=== PATIENT | male | born 1980 | race Caucasian/White ===

== ENCOUNTER 2019-06-26 12:50 | Emergency (ER) | payer MEDICAID ==
[~2019-06-26] VITALS: Ht 180.3 cm; Wt 166.4 kg
[~2019-06-26 12:50] MED LIST: FAMO-128 PO
[2019-06-26] MEDS ORDERED: ibuprofen tablet 400 MG TABLET PO ONE (14:10)
[2019-06-26 14:57] VITALS: BP 136/92
== END 2019-06-26 14:59 | disposition home or self-care (01) ==
LOC: ER 12:51
DX: R07.81 Pleurodynia (principal); E78.00 Pure hypercholesterolemia, unspecified; I10 Essential (primary) hypertension; G47.30 Sleep apnea, unspecified; E11.9 Type 2 diabetes mellitus without complications; G89.29 Other chronic pain; F41.9 Anxiety disorder, unspecified; F32.9 Major depressive disorder, single episode, unspecified; F20.9 Schizophrenia, unspecified; F17.200 Nicotine dependence, unspecified, uncomplicated; F12.90 Cannabis use, unspecified, uncomplicated; Z98.890 Other specified postprocedural states; Z79.899 Other long term (current) drug therapy
CPT/HCPCS: 71046; 99283

== ENCOUNTER 2019-07-16 09:31 | Emergency (ER) | payer MEDICAID ==
[~2019-07-16] VITALS: Ht 180.3 cm; Wt 170.9 kg
[2019-07-16 09:39] VITALS: BP 162/108
[2019-07-16] MEDS ORDERED: ketorolac trometh inj. 60 MG/2 ML VIAL IM ONE (10:05)
[2019-07-16] MEDS ORDERED: HYDROcodone/acetaminophen 5mg/325mg tablet PO ONE (10:05)
== END 2019-07-16 10:15 | disposition home or self-care (01) ==
LOC: ER 09:31
DX: M94.0 Chondrocostal junction syndrome [Tietze] (principal); R11.10 Vomiting, unspecified; E78.00 Pure hypercholesterolemia, unspecified; I10 Essential (primary) hypertension; E11.9 Type 2 diabetes mellitus without complications; G89.29 Other chronic pain; F41.9 Anxiety disorder, unspecified; F32.9 Major depressive disorder, single episode, unspecified; F20.9 Schizophrenia, unspecified; G47.30 Sleep apnea, unspecified; F12.90 Cannabis use, unspecified, uncomplicated; Z98.890 Other specified postprocedural states; Z79.899 Other long term (current) drug therapy
CPT/HCPCS: 96372; 99283; J1885

== ENCOUNTER 2019-07-22 05:27 | Inpatient (IN) | payer MEDICARE, MEDICAID ==
[~2019-07-22] VITALS: Ht 180.3 cm; Wt 162.5 kg
[2019-07-22] MEDS ORDERED: ipratropium/albuterol 3ml nebule NEB ONE (05:45)
[2019-07-22] MEDS ORDERED: morphine 4 MG/ML inj SYRINge IV PRN (05:45)
[2019-07-22] MEDS ORDERED: ondansetron/PF 4mg/2ml inj IV ONE (05:45)
[2019-07-22] MEDS ORDERED: ZIPR80CA10 PO (06:13)
[2019-07-22] MEDS ORDERED: ATOR20TA66 PO (06:13)
[2019-07-22] MEDS ORDERED: CETI10TA14 PO (06:13)
[2019-07-22] MEDS ORDERED: LISI-600 PO (06:13)
[2019-07-22] MEDS ORDERED: BENZ1TAB7 PO (06:13)
[2019-07-22] MEDS ORDERED: PRAZ1CAP5 PO (06:13)
[2019-07-22] MEDS ORDERED: CLON0.5T4 PO (06:13)
[2019-07-22] MEDS ORDERED: GABA-532 PO (06:13)
[2019-07-22] MEDS ORDERED: DULO60CA65 PO (06:13)
[2019-07-22] MEDS ORDERED: METF500T20 PO (06:13)
[2019-07-22 06:30] LABS: BASOPHILS # (AUTO) 0.1 X10'3 (0-0.2); BASOPHILS % (AUTO) 0.5 % (0-1); EOSINOPHILS # (AUTO) 0.4 X10'3 (0-0.9); EOSINOPHILS % (AUTO) 3.4 % (0-6); HEMATOCRIT 32.9 % (42.0-52.0); HEMOGLOBIN 11.4 g/dl (14.0-17.9); LYMPHOCYTES # (AUTO) 1.2 X10'3 (1.1-4.8); LYMPHOCYTES % (AUTO) 10.6 % (21-51); MEAN CORPUSCULAR HEMOGLOBIN 32.9 PG (27.0-31.0); MEAN CORPUSCULAR HGB CONC 34.6 g/dL (33.0-36.5); MEAN PLATELET VOLUME 6.4 FL (7.4-10.4); MONOCYTES % (AUTO) 8.8 % (2-12); NEUTROPHILS % (AUTO) 76.7 % (42-75); PLATELET COUNT 390 X10'3 (140-440); RED BLOOD COUNT 3.46 X10'6 (4.70-6.10); RED CELL DISTRIBUTION WIDTH 13.6 % (11.5-14.5); WHITE BLOOD COUNT 11.7 X10'3 (4.5-11.0)
[2019-07-22 06:44] LABS: PARTIAL THROMBOPLASTIN TIME 28 SECONDS (22-32)
[2019-07-22 06:48] LABS: ALANINE AMINOTRANSFERASE 47 U/L (12-78); ALBUMIN 3.1 G/DL (3.4-5.0); ALBUMIN/GLOBULIN RATIO 0.8 (1.1-1.5); ALKALINE PHOSPHATASE 112 IU/L (46-116); ANION GAP 10 (8-16); ASPARTATE AMINO TRANSFERASE 25 U/L (10-37); BILIRUBIN,TOTAL 1.6 MG/DL (0.1-1.0); BLOOD UREA NITROGEN 7 MG/DL (7-18); BUN/CREATININE RATIO 7.4 (5.4-32.0); CALCIUM 8.8 MG/DL (8.5-10.1); CHLORIDE 97 MMOL/L (99-107); CREATININE 0.95 MG/DL (0.60-1.10); GLUCOSE 196 MG/DL (70-104); POTASSIUM 3.6 MMOL/L (3.5-5.1); SODIUM 130 MMOL/L (135-145); TOTAL CARBON DIOXIDE 23.1 MMOL/L (24-32); TOTAL PROTEIN 7.1 G/DL (6.4-8.2); eGFR 88 ML/MIN
[2019-07-22 06:48] LABS: CLARITY,URINE CLEAR (Clear); COLOR,URINE STRAW (Yellow); GLUCOSE, URINE NEGATIVE (Neg); KETONES,URINE NEGATIVE (Neg); LEUKOCYTE ESTERASE ,URINE NEGATIVE (Neg); NITRITES, URINE NEGATIVE (Neg); OCCULT BLOOD,URINE TRACE-LYSED (Neg); PH,URINE 6.5 (4.8-8.0); PROTEIN,URINE NEGATIVE (Neg); UROBILINOGEN,URINE 0.2 E.U/dL (0.2-1.0)
[2019-07-22 06:50] LABS: UA COLLECTION TYPE CLN CATCH MIDSTREAM
[2019-07-22 06:54] LABS: BACTERIA,URINE NONE SEEN /HPF (Neg); RBC,URINE 0-2 /HPF (0-2); SQUAMOUS EPITHELIAL CELL,UR NONE SEEN /LPF (FEW); WBC,URINE 0-4 /HPF (0-4)
[2019-07-22 06:55] LABS: LIPASE 126 U/L (73-393); MAGNESIUM 1.9 MG/DL (1.5-2.4)
[2019-07-22] MEDS ORDERED: iohexol 300mg/ml 100ml inj. ONE (07:19)
--- NOTE | 2019-07-22 08:15 | NUR ---
pt is at ct
[2019-07-22] MEDS: MESSAGE TO NURSING PO NR ×2 (08:30→10:07)
[2019-07-22] MEDS: normal saline 1000ml 1,000 ML IV SCH ×2 (10:31→20:31)
[2019-07-22] MEDS ORDERED: potassium CL 10mEq/100ml bag 100 ML IV PRN ×2 (10:35)
[2019-07-22] MEDS ORDERED: diphenhydrAMINE 25mg capsule PO PRN (10:35)
[2019-07-22] MEDS ORDERED: dextrose 50%-water 50ml dispensing syringe IV PRN ×2 (10:35)
[2019-07-22] MEDS ORDERED: mag hydrox/Alum hydrox/simeth 30ml oral suspension PO PRN (10:35)
[2019-07-22] MEDS ORDERED: acetaminophen 325mg tablet PO PRN ×2 (10:35)
[2019-07-22] MEDS ORDERED: HYDROcodone/acetaminophen 10/325mg tab PO PRN (10:35)
[2019-07-22] MEDS ORDERED: bisacodyl 10mg suppository rectal RC PRN (10:35)
[2019-07-22] MEDS ORDERED: magnesium 4gm in 100ml NS 100 ML IV PRN (10:35)
[2019-07-22] MEDS ORDERED: magnesium 2GM in 50ml NS 50 ML IV PRN (10:35)
[2019-07-22] MEDS ORDERED: ipratropium/albuterol 3ml nebule NEB PRN (10:35)
[2019-07-22] MEDS ORDERED: MESSAGE TO PHARMACY PO ONE (10:35)
[2019-07-22] MEDS ORDERED: glucagon, human recombinant 1mg kit SUBCUT PRN (10:35)
[2019-07-22] MEDS ORDERED: insulin Lispro (HumaLOG) vial - multi-dose SQ SCH (10:35)
[2019-07-22] MEDS ORDERED: magnesium Cl slow-release 64mg tablet PO PRN (10:35)
[2019-07-22] MEDS ORDERED: morphine 2 MG/ML inj. syringe IV PRN ×2 (10:35)
[2019-07-22] MEDS ORDERED: dextrose ORAL solution 15 GM/59 ML bottle PO PRN ×2 (10:35)
[2019-07-22] MEDS ORDERED: potassium Cl 20 mEq SR tablet PO PRN ×2 (10:35)
[2019-07-22] MEDS ORDERED: ondansetron/PF 4mg/2ml inj IV PRN (10:35)
[2019-07-22] MEDS ORDERED: acetaminophen 650mg rectal suppository RC PRN (10:35)
[2019-07-22 10:42] VITALS: BP 202/114
[2019-07-22] MEDS: K and/or MAG REPLACEMENT MC SCH (10:43)
[2019-07-22 11:01] VITALS: BP 188/106
--- NOTE | 2019-07-22 11:08 | NUR ---
CHEST TUBE IN PROGRESS AT THIS TIME AT BEDSIDE.
--- NOTE | 2019-07-22 11:25 | NUR ---
CHEST TUBE PLACED TO SUCTION BY DR WEAVER AT THIS TIME, BLOODY DRAINAGE NOTED IN TUBING WITH NONE IN CHAMBER. PER RN APPROXIMATELY 50 ML DRAINED FROM THORACENTESIS TO LEFT LOWER LUNG.
[2019-07-22 11:26] LABS: HEMOGLOBIN A1C 6.3 % (4.5-6.2)
--- NOTE | 2019-07-22 11:35 | NUR ---
I have received report from Natalia JOSEPH and had the opportunity to ask questions. Awaiting pts arrival to PCU.
[2019-07-22 11:45] VITALS: BP 189/101
--- NOTE | 2019-07-22 11:45 | NUR ---
Pt arrived from ED via gurney. Pt ambulated independently in to bed without difficulty. Vital signs obtained, tele monitor applied, pt oriented to room including call light and TV use. Will continue to closely monitor.
[2019-07-22 12:10] LABS: BFSOURCE LEFT PLEURAL FLD; PLEURAL FLUID PH 7.178 (7.63-7.65)
[2019-07-22 12:38] LABS: GLUCOSE,BODY FLUID 61 MG/DL; LDH,BODY FLUID 1596 U/L; TOTAL PROTEIN,BODY FLUID 4.8 G/DL
[2019-07-22] MEDS: gabapentin 300mg capsule PO SCH ×2 (13:58→21:24)
[2019-07-22] MEDS: levoFLOXACIN-Levaquin 750MG/D5 150 ML IV SCH (13:58)
[2019-07-22] MEDS: ipratropium/albuterol 3ml nebule NEB SCH ×2 (14:00→20:44)
[2019-07-22 14:12] LABS: BFAPPEAR BLOODY
[2019-07-22 14:13] LABS: BF RBC COUNT 461125 /CU MM; BF WBC COUNT 413 /CU MM (0-1000); BFCOLOR RED; BFVOLUME 20 ML; LYMPHOCYTES,BODY FLUID 64 %; MONOCYTES,BODY FLUID 2 %; NEUTROPHILS,BODY FLUID 25 %
[2019-07-22 14:14] LABS: EOSINOPHILS,BODY FLUID 9 %
--- NOTE | 2019-07-22 14:41 | NUR ---
Paged Dr. Santos parker sputum sample & 2nd UA. PAGER ID: [phone] MESSAGE: Mariano Almaraz Clay in [phone]. Do you want sputum sample & 2nd UA? Thanks! Alyse JOSEPH [phone] Addendum: 07/22/19 at 1739 by Anna Harman RN Sputum sample ordered, 2nd UA cancelled.
[2019-07-22 15:00] VITALS: BP 133/89
[2019-07-22 16:58] LABS: BASOPHILS % (AUTO) 0.4 % (0-1); EOSINOPHILS # (AUTO) 0.2 X10'3 (0-0.9); EOSINOPHILS % (AUTO) 2.3 % (0-6); HEMATOCRIT 31.2 % (42.0-52.0); HEMOGLOBIN 10.7 g/dl (14.0-17.9); LYMPHOCYTES % (AUTO) 18.7 % (21-51); MEAN CORPUSCULAR HEMOGLOBIN 32.8 PG (27.0-31.0); MEAN CORPUSCULAR HGB CONC 34.4 g/dL (33.0-36.5); MEAN CORPUSCULAR VOLUME 95.1 FL (78-98); MEAN PLATELET VOLUME 5.9 FL (7.4-10.4); MONOCYTES # (AUTO) 1.1 X10'3 (0-0.9); MONOCYTES % (AUTO) 10.1 % (2-12); NEUTROPHILS # (AUTO) 7.3 X10'3 (1.8-7.7); NEUTROPHILS % (AUTO) 68.5 % (42-75); PLATELET COUNT 384 X10'3 (140-440); RED BLOOD COUNT 3.28 X10'6 (4.70-6.10); RED CELL DISTRIBUTION WIDTH 13.8 % (11.5-14.5); WHITE BLOOD COUNT 10.6 X10'3 (4.5-11.0)
[2019-07-22] MEDS: HYDROcodone/acetaminophen 5mg/325mg tablet PO PRN ×2 (17:08→21:25)
--- NOTE | 2019-07-22 17:40 | NUR ---
Orientee documentation: I have reviewed and agree with all interventions, assessments performed and documented by JAKE Cote.
--- NOTE | 2019-07-22 18:00 | NUR ---
Patient in room PCU 3024. I have received report from Alyse JOSEPH and Kera JOSEPH and had the opportunity to ask questions and assume patient care.
--- NOTE | 2019-07-22 18:25 | NUR ---
Problems reprioritized. Patient report given, questions answered & plan of care reviewed with JAKE Rivas.
--- NOTE | 2019-07-22 18:26 | NUR ---
Problems reprioritized. Patient report given, questions answered & plan of care reviewed with Evelyn JOSEPH and Juani JOSEPH.
[2019-07-22 19:00] VITALS: BP 146/92
[2019-07-22] MEDS: insulin glargine (Lantus) pen - multi-dose SQ SCH (21:00)
[2019-07-22] MEDS: atorvastatin 20mg tablet PO SCH (21:24)
[2019-07-22] MEDS: prazosin 1mg capsule PO SCH (21:24)
[2019-07-22 22:21] LABS: BASOPHILS # (AUTO) 0.1 X10'3 (0-0.2); BASOPHILS % (AUTO) 0.5 % (0-1); EOSINOPHILS # (AUTO) 0.3 X10'3 (0-0.9); EOSINOPHILS % (AUTO) 2.6 % (0-6); HEMATOCRIT 29.8 % (42.0-52.0); HEMOGLOBIN 10.2 g/dl (14.0-17.9); LYMPHOCYTES % (AUTO) 16.7 % (21-51); MEAN CORPUSCULAR HEMOGLOBIN 32.4 PG (27.0-31.0); MEAN CORPUSCULAR HGB CONC 34.1 g/dL (33.0-36.5); MEAN CORPUSCULAR VOLUME 94.9 FL (78-98); MONOCYTES # (AUTO) 1.7 X10'3 (0-0.9); MONOCYTES % (AUTO) 13.9 % (2-12); NEUTROPHILS # (AUTO) 7.9 X10'3 (1.8-7.7); NEUTROPHILS % (AUTO) 66.3 % (42-75); PLATELET COUNT 392 X10'3 (140-440); RED BLOOD COUNT 3.14 X10'6 (4.70-6.10); RED CELL DISTRIBUTION WIDTH 13.7 % (11.5-14.5)
[2019-07-22 23:00] VITALS: BP 130/65
[2019-07-23] MEDS: HYDROcodone/acetaminophen 5mg/325mg tablet PO PRN ×4 (01:29→21:42)
[2019-07-23 02:02] LABS: CLARITY,URINE CLEAR (Clear); COLOR,URINE YELLOW (Yellow); GLUCOSE, URINE NEGATIVE (Neg); KETONES,URINE NEGATIVE (Neg); LEUKOCYTE ESTERASE ,URINE NEGATIVE (Neg); NITRITES, URINE NEGATIVE (Neg); OCCULT BLOOD,URINE TRACE-INTACT (Neg); PROTEIN,URINE NEGATIVE (Neg); UROBILINOGEN,URINE 0.2 E.U/dL (0.2-1.0)
[2019-07-23 02:05] LABS: UA COLLECTION TYPE CLN CATCH MIDSTREAM; URINE AMPHETAMINE SCREEN NEGATIVE (Neg); URINE BARBITUATE SCREEN NEGATIVE (Neg); URINE BENZODIAZEPINES SCREEN NEGATIVE (Neg); URINE CANNABINOID SCREEN POSITIVE (Neg); URINE COCAINE SCREEN NEGATIVE (Neg); URINE METHADONE SCREEN NEGATIVE (Neg); URINE OPIATE SCREEN POSITIVE (Neg); URINE PHENCYCLIDINE SCREEN NEGATIVE (Neg)
[2019-07-23 02:15] LABS: RBC,URINE NONE SEEN /HPF (0-2); WBC,URINE 0-4 /HPF (0-4)
[2019-07-23 02:16] LABS: BACTERIA,URINE FEW /HPF (Neg); SQUAMOUS EPITHELIAL CELL,UR FEW /LPF (FEW)
[2019-07-23 03:00] VITALS: BP 139/93
[2019-07-23] MEDS: ipratropium/albuterol 3ml nebule NEB SCH ×4 (03:12→20:00)
[2019-07-23 05:24] LABS: BASOPHILS % (AUTO) 0.2 % (0-1); EOSINOPHILS # (AUTO) 0.2 X10'3 (0-0.9); EOSINOPHILS % (AUTO) 1.9 % (0-6); HEMATOCRIT 29.7 % (42.0-52.0); HEMOGLOBIN 10.2 g/dl (14.0-17.9); LYMPHOCYTES # (AUTO) 1.5 X10'3 (1.1-4.8); LYMPHOCYTES % (AUTO) 14.7 % (21-51); MEAN CORPUSCULAR HEMOGLOBIN 33.1 PG (27.0-31.0); MEAN CORPUSCULAR HGB CONC 34.2 g/dL (33.0-36.5); MEAN CORPUSCULAR VOLUME 96.5 FL (78-98); MEAN PLATELET VOLUME 6.3 FL (7.4-10.4); MONOCYTES # (AUTO) 1.2 X10'3 (0-0.9); MONOCYTES % (AUTO) 12.2 % (2-12); NEUTROPHILS # (AUTO) 7.1 X10'3 (1.8-7.7); PLATELET COUNT 379 X10'3 (140-440); RED BLOOD COUNT 3.08 X10'6 (4.70-6.10); WHITE BLOOD COUNT 10.1 X10'3 (4.5-11.0)
[2019-07-23 05:38] LABS: ALANINE AMINOTRANSFERASE 36 U/L (12-78); ALBUMIN 2.6 G/DL (3.4-5.0); ALBUMIN/GLOBULIN RATIO 0.7 (1.1-1.5); ALKALINE PHOSPHATASE 91 IU/L (46-116); ANION GAP 10 (8-16); ASPARTATE AMINO TRANSFERASE 17 U/L (10-37); BILIRUBIN,TOTAL 1.2 MG/DL (0.1-1.0); BLOOD UREA NITROGEN 11 MG/DL (7-18); BUN/CREATININE RATIO 9.9 (5.4-32.0); CALCIUM 8.4 MG/DL (8.5-10.1); CHLORIDE 99 MMOL/L (99-107); CHOL/HDL RATIO 2.2 (0.00-4.99); CHOLESTEROL 80 MG/DL (0-200); CREATININE 1.11 MG/DL (0.60-1.10); GLUCOSE 185 MG/DL (70-104); HDL CHOLESTEROL 36 MG/DL (35-60); LDL CHOLESTEROL 36 MG/DL (50-100); MAGNESIUM 1.9 MG/DL (1.5-2.4); PHOSPHORUS 3.2 MG/DL (2.3-4.5); POTASSIUM 4.1 MMOL/L (3.5-5.1); SODIUM 134 MMOL/L (135-145); TOTAL CARBON DIOXIDE 25.4 MMOL/L (24-32); TOTAL PROTEIN 6.4 G/DL (6.4-8.2); TRIGLYCERIDES 91 MG/DL (20-135); eGFR 74 ML/MIN
--- NOTE | 2019-07-23 05:49 | NUR ---
Orientee documentation: I have reviewed and agree with all interventions, meds given, assessments performed and documented by Juani JOSEPH.
[2019-07-23 06:00] VITALS: BP 142/82
--- NOTE | 2019-07-23 06:10 | NUR ---
Problems reprioritized. Patient report given, questions answered & plan of care reviewed with Miriam JOSEPH.
--- NOTE | 2019-07-23 06:24 | NUR ---
Problems reprioritized. Patient report given, questions answered & plan of care reviewed with Miriam JOSEPH.
[2019-07-23] MEDS: normal saline 1000ml 1,000 ML IV SCH ×2 (06:31→16:38)
[2019-07-23] MEDS: K and/or MAG REPLACEMENT MC SCH (08:00)
[2019-07-23] MEDS: clonazePAM 0.5mg tablet PO SCH (08:18)
[2019-07-23] MEDS: gabapentin 300mg capsule PO SCH ×3 (08:19→20:33)
[2019-07-23] MEDS: cetirizine 10mg tablet PO SCH (08:19)
[2019-07-23] MEDS: lisinopril 20mg tablet PO SCH (08:20)
[2019-07-23] MEDS: duloxetine 30mg CAPSULE.DR PO SCH (08:20)
[2019-07-23] MEDS: benztropine 1mg tablet PO SCH (08:21)
[2019-07-23] MEDS: ziprasidone 20mg capsule PO SCH (08:21)
[2019-07-23] MEDS: levoFLOXACIN-Levaquin 750MG/D5 150 ML IV SCH (08:23)
--- NOTE | 2019-07-23 08:49 | NUR ---
Patient in room PCU 3024. I have received report from Evelyn JOSEPH and Juani JOSEPH and had the opportunity to ask questions and assume patient care.
[2019-07-23 09:59] LABS: BASOPHILS % (AUTO) 0.3 % (0-1); EOSINOPHILS # (AUTO) 0.2 X10'3 (0-0.9); EOSINOPHILS % (AUTO) 1.7 % (0-6); HEMATOCRIT 27.1 % (42.0-52.0); HEMOGLOBIN 9.5 g/dl (14.0-17.9); LYMPHOCYTES # (AUTO) 1.1 X10'3 (1.1-4.8); LYMPHOCYTES % (AUTO) 11.4 % (21-51); MEAN CORPUSCULAR HEMOGLOBIN 33.5 PG (27.0-31.0); MEAN CORPUSCULAR HGB CONC 35.2 g/dL (33.0-36.5); MEAN CORPUSCULAR VOLUME 95.1 FL (78-98); MEAN PLATELET VOLUME 6.2 FL (7.4-10.4); MONOCYTES # (AUTO) 0.9 X10'3 (0-0.9); MONOCYTES % (AUTO) 9.4 % (2-12); NEUTROPHILS # (AUTO) 7.3 X10'3 (1.8-7.7); NEUTROPHILS % (AUTO) 77.2 % (42-75); PLATELET COUNT 362 X10'3 (140-440); RED BLOOD COUNT 2.85 X10'6 (4.70-6.10); RED CELL DISTRIBUTION WIDTH 13.4 % (11.5-14.5); WHITE BLOOD COUNT 9.5 X10'3 (4.5-11.0)
[2019-07-23] MEDS: MESSAGE TO NURSING PO NR (10:49)
[2019-07-23 11:00] VITALS: BP 142/90
[2019-07-23] MEDS: nicotine 21mg patch - 24 hr TD SCH (11:38)
[2019-07-23] MEDS: magnesium hydroxide 30ml (MOM) UD suspension PO PRN (11:39)
[2019-07-23 15:00] VITALS: BP 101/60
[2019-07-23 18:00] VITALS: BP 156/88
--- NOTE | 2019-07-23 18:00 | NUR ---
Patient in room PCU 3024. I have received report from Miriam JOSEPH and had the opportunity to ask questions and assume patient care.
--- NOTE | 2019-07-23 18:49 | NUR ---
Problems reprioritized. Patient report given, questions answered & plan of care reviewed with Jeff JOSEPH and Juani JOSEPH.
--- NOTE | 2019-07-23 18:50 | NUR ---
Patient in room PCU 3024A. I have received report from JAKE Mendoza and had the opportunity to ask questions and assume patient care. Patient awake for bedside report and on room air. Stable at this time. Will continue to monitor closely.
--- NOTE | 2019-07-23 19:15 | NUR ---
Martinez at bedside, discussed plan of care with pt. possible CT scan planned for the morning, will confirm with order once received. will continue to monitor pt and chest tube drainage.
[2019-07-23] MEDS: prazosin 1mg capsule PO SCH (20:33)
[2019-07-23] MEDS: atorvastatin 20mg tablet PO SCH (20:33)
[2019-07-23] MEDS: lactobacillus rhamnosus 10,000 MMU CELLS/CAPSULE PO SCH (20:33)
[2019-07-23] MEDS: insulin glargine (Lantus) pen - multi-dose SQ SCH (20:40)
[2019-07-23 22:00] VITALS: BP 132/76
[2019-07-24 02:00] VITALS: BP 136/88
[2019-07-24] MEDS: ipratropium/albuterol 3ml nebule NEB SCH ×4 (02:14→20:16)
[2019-07-24] MEDS: normal saline 1000ml 1,000 ML IV SCH ×3 (04:00→19:40)
[2019-07-24 05:29] LABS: BASOPHILS % (AUTO) 0.3 % (0-1); EOSINOPHILS # (AUTO) 0.4 X10'3 (0-0.9); EOSINOPHILS % (AUTO) 4.7 % (0-6); HEMATOCRIT 25.9 % (42.0-52.0); HEMOGLOBIN 8.9 g/dl (14.0-17.9); LYMPHOCYTES # (AUTO) 1.4 X10'3 (1.1-4.8); LYMPHOCYTES % (AUTO) 17.4 % (21-51); MEAN CORPUSCULAR HEMOGLOBIN 33.1 PG (27.0-31.0); MEAN CORPUSCULAR HGB CONC 34.6 g/dL (33.0-36.5); MEAN CORPUSCULAR VOLUME 95.7 FL (78-98); MEAN PLATELET VOLUME 6.1 FL (7.4-10.4); MONOCYTES # (AUTO) 0.9 X10'3 (0-0.9); MONOCYTES % (AUTO) 10.9 % (2-12); NEUTROPHILS # (AUTO) 5.3 X10'3 (1.8-7.7); NEUTROPHILS % (AUTO) 66.7 % (42-75); PLATELET COUNT 385 X10'3 (140-440); RED CELL DISTRIBUTION WIDTH 14.1 % (11.5-14.5)
[2019-07-24 05:40] LABS: ALANINE AMINOTRANSFERASE 38 U/L (12-78); ALBUMIN 2.4 G/DL (3.4-5.0); ALBUMIN/GLOBULIN RATIO 0.7 (1.1-1.5); ALKALINE PHOSPHATASE 86 IU/L (46-116); ANION GAP 7 (8-16); ASPARTATE AMINO TRANSFERASE 20 U/L (10-37); BLOOD UREA NITROGEN 13 MG/DL (7-18); BUN/CREATININE RATIO 12.9 (5.4-32.0); CALCIUM 8.1 MG/DL (8.5-10.1); CHLORIDE 103 MMOL/L (99-107); CREATININE 1.01 MG/DL (0.60-1.10); GLUCOSE 168 MG/DL (70-104); MAGNESIUM 2.2 MG/DL (1.5-2.4); PHOSPHORUS 2.9 MG/DL (2.3-4.5); POTASSIUM 4.1 MMOL/L (3.5-5.1); SODIUM 136 MMOL/L (135-145); TOTAL CARBON DIOXIDE 26.2 MMOL/L (24-32); eGFR 82 ML/MIN
[2019-07-24 06:00] VITALS: BP 130/78
--- NOTE | 2019-07-24 06:18 | NUR ---
Orientee documentation: I have reviewed and agree with all interventions, assessments performed and documented by JAKE Gloria.
--- NOTE | 2019-07-24 06:19 | NUR ---
Problems reprioritized. Patient report given, questions answered & plan of care reviewed with JAKE Mendoza.
--- NOTE | 2019-07-24 06:19 | NUR ---
Problems reprioritized. Patient report given, questions answered & plan of care reviewed with Miriam JOSEPH.
--- NOTE | 2019-07-24 06:26 | NUR ---
Patient in room PCU 3024. I have received report from Jeff JOSEPH and Juani JOSEPH and had the opportunity to ask questions and assume patient care.
[2019-07-24] MEDS: K and/or MAG REPLACEMENT MC SCH (08:00)
[2019-07-24] MEDS: benztropine 1mg tablet PO SCH (09:25)
[2019-07-24] MEDS: ziprasidone 20mg capsule PO SCH (09:27)
[2019-07-24] MEDS: gabapentin 300mg capsule PO SCH ×3 (09:28→21:00)
[2019-07-24] MEDS: cetirizine 10mg tablet PO SCH (09:29)
[2019-07-24] MEDS: clonazePAM 0.5mg tablet PO SCH (09:29)
[2019-07-24] MEDS: lisinopril 20mg tablet PO SCH (09:31)
[2019-07-24] MEDS: duloxetine 30mg CAPSULE.DR PO SCH (09:32)
[2019-07-24] MEDS: lactobacillus rhamnosus 10,000 MMU CELLS/CAPSULE PO SCH ×2 (09:33→20:00)
[2019-07-24] MEDS: nicotine 21mg patch - 24 hr TD SCH (09:36)
[2019-07-24] MEDS: magnesium hydroxide 30ml (MOM) UD suspension PO PRN (09:55)
[2019-07-24 11:00] VITALS: BP 132/90
[2019-07-24] MEDS ORDERED: levoFLOXACIN 750MG TABLET PO SCH (11:00)
[2019-07-24] MEDS: ceFAZolin 1GM/D5W- ADD-VANTAGE 50 ML IV SCH (16:00)
--- NOTE | 2019-07-24 18:30 | NUR ---
Patient in room PCU 3024A. I have received report from Kelly JOSEPH and had the opportunity to ask questions and assume patient care.
[2019-07-24 18:43] VITALS: BP 149/85
[2019-07-24 19:00] VITALS: BP 132/74
[2019-07-24] MEDS ORDERED: gentamicin 40 MG/1 ML inj ONE (19:04)
[2019-07-24] MEDS ORDERED: clindamycin phosphate 150mg/ml inj. ONE (19:04)
--- NOTE | 2019-07-24 19:09 | NUR ---
Problems reprioritized. Patient report given, questions answered & plan of care reviewed with Zak RN.
--- NOTE | 2019-07-24 20:45 | NUR ---
pt left unit via bed for OR with OR staff. all belongings sent to ICU room pt will be going to post op.
[2019-07-24] MEDS: insulin glargine (Lantus) pen - multi-dose SQ SCH (21:00)
[2019-07-24] MEDS: atorvastatin 20mg tablet PO SCH (21:00)
[2019-07-24] MEDS: prazosin 1mg capsule PO SCH (21:00)
[2019-07-24] MEDS ORDERED: fentaNYL /PF 50mcg/ml 5ml ampule ONE ×2 (21:28→23:46)
[2019-07-24] MEDS ORDERED: MIDAZolam 1mg/ml 10ml vial ONE (21:28)
[2019-07-24] MEDS ORDERED: rocuronium 10mg/ml inj IV ONE ×2 (21:28→21:30)
[2019-07-24] MEDS ORDERED: sevoflurane 250ml liquid IH ONE (21:28)
[2019-07-24] MEDS ORDERED: propofol inj 20 ML IV ONE (21:31)
[2019-07-24] MEDS ORDERED: ceFAZolin 1000mg inj ONE ×3 (22:07)
--- NOTE | 2019-07-24 22:09 | NUR ---
received report from Zak RN on tele. pt currently in OR coming to 2010
--- NOTE | 2019-07-24 22:09 | NUR ---
pt report given to Dinorah JOSEPH. ICU all questions answered.
[2019-07-24] MEDS ORDERED: labetalol 20mg/4ml (5mg/ml) syringe IV ONE (22:53)
[2019-07-24] MEDS ORDERED: ondansetron/PF 4mg/2ml inj IV PRN (23:05)
[2019-07-24] MEDS ORDERED: ringers solution, lacted 1,000 ML IV SCH (23:05)
[2019-07-25] VITALS (28 sets, daily range): BP systolic 102–159; BP diastolic 59–94
[2019-07-25] MEDS: ceFAZolin 1GM/D5W- ADD-VANTAGE 50 ML IV SCH
[2019-07-25] MEDS ORDERED: CADD PCA waste documentation MC PRN (00:10)
[2019-07-25] MEDS ORDERED: HYDROcodone/acetaminophen 10/325mg tab PO PRN ×2 (00:10)
[2019-07-25] MEDS ORDERED: magnesium hydroxide 30ml (MOM) UD suspension PO PRN (00:10)
[2019-07-25] MEDS ORDERED: albuterol 2.5 MG/3 ML nebule NEB PRN (00:10)
[2019-07-25] MEDS ORDERED: FENTANYL-0.9 % NACL/PF 100 ML IV PRN (00:10)
[2019-07-25] MEDS ORDERED: ondansetron/PF 4mg/2ml inj IV PRN (00:10)
[2019-07-25] MEDS ORDERED: morphine 4 MG/ML inj SYRINge IV PRN ×2 (00:10)
[2019-07-25] MEDS ORDERED: metoclopramide 5 mg/ml inj IV PRN (00:10)
[2019-07-25] MEDS ORDERED: naloxone 0.4 mg/ml inj IV PRN (00:10)
[2019-07-25] MEDS ORDERED: propofol 1000mg/100ml bottle 100 ML IV SCH (00:44)
[2019-07-25] MEDS: FENTANYL-0.9 % NACL/PF 100 ML IV PRN ×3 (00:50→21:50)
[2019-07-25] MEDS: propofol 1000mg/100ml bottle 100 ML IV SCH ×2 (00:59→19:51)
[2019-07-25 01:11] LABS: ABG BASE EXCESS -4.5 mmol/L (-2.0-3.0); ABG HCO3 21.8 mmol/L (22.0-26.0); ABG OXYGEN SATURATION 93.9 % (95-98); ABG PCO2 (T) 45.3 mmHg (35.0-45.0); ABG PO2 (T) 79.9 mmHg (83-108); FCOHb 0.3 % (0.5-1.5); FMetHb 0.2 % (0.3-1.12); FO2Hb 93.4 % (94-100); MINUTE VOLUME 15 L/min; PATIENT TEMPERATURE 36.9; PEEP 10 cm H2O; RESPIRATORY RATE 12 b/min; RESPIRATORY RATE (OBSERVED) 26 b/min; TIDAL VOLUME 700 mL; TOTAL HEMOGLOBIN 10.3 G/dl (14.0-17.9)
[2019-07-25 01:16] LABS: BASOPHILS % (AUTO) 0.4 % (0-1); EOSINOPHILS # (AUTO) 0.2 X10'3 (0-0.9); EOSINOPHILS % (AUTO) 1.9 % (0-6); HEMATOCRIT 26.4 % (42.0-52.0); HEMOGLOBIN 9.1 g/dl (14.0-17.9); LYMPHOCYTES % (AUTO) 8.9 % (21-51); MEAN CORPUSCULAR HEMOGLOBIN 33.1 PG (27.0-31.0); MEAN CORPUSCULAR HGB CONC 34.5 g/dL (33.0-36.5); MEAN PLATELET VOLUME 5.9 FL (7.4-10.4); MONOCYTES # (AUTO) 0.8 X10'3 (0-0.9); MONOCYTES % (AUTO) 7.3 % (2-12); NEUTROPHILS # (AUTO) 9.4 X10'3 (1.8-7.7); NEUTROPHILS % (AUTO) 81.5 % (42-75); PLATELET COUNT 434 X10'3 (140-440); RED BLOOD COUNT 2.75 X10'6 (4.70-6.10); WHITE BLOOD COUNT 11.6 X10'3 (4.5-11.0)
[2019-07-25 01:29] LABS: ALANINE AMINOTRANSFERASE 38 U/L (12-78); ALBUMIN 2.4 G/DL (3.4-5.0); ALBUMIN/GLOBULIN RATIO 0.7 (1.1-1.5); ALKALINE PHOSPHATASE 87 IU/L (46-116); ANION GAP 6 (8-16); ASPARTATE AMINO TRANSFERASE 25 U/L (10-37); BILIRUBIN,TOTAL 0.9 MG/DL (0.1-1.0); BLOOD UREA NITROGEN 18 MG/DL (7-18); BUN/CREATININE RATIO 15.7 (5.4-32.0); CALCIUM 7.7 MG/DL (8.5-10.1); CHLORIDE 105 MMOL/L (99-107); CREATININE 1.15 MG/DL (0.60-1.10); GLUCOSE 188 MG/DL (70-104); MAGNESIUM 2.1 MG/DL (1.5-2.4); PHOSPHORUS 4.3 MG/DL (2.3-4.5); POTASSIUM 5.4 MMOL/L (3.5-5.1); SODIUM 136 MMOL/L (135-145); TOTAL CARBON DIOXIDE 25.3 MMOL/L (24-32); TOTAL PROTEIN 5.7 G/DL (6.4-8.2); eGFR 71 ML/MIN
--- NOTE | 2019-07-25 02:08 | NUR ---
pt arrived from OR around 0020, intubated with an arterial and central venous line. VSS. chest tube to lt chest, leave to water seal per Manuela. pt started on propofol and fentanyl for sedation. pt is easily arousable, opens eyes makes eye contact and follows instructions to squeeze hands, wiggle toes, turn etc. pt nods head yes/no. not anxious on light sedation at this time. labs and ABG reviewed. pt K 5.4, no ectopy at this time. good urine output. pt cleaned up and assessed. phoned pharmacist because pt had 3 different ancef orders. I was told the pt received 3 grams in OR, though it does not show up as scanned on the eMAR. nonadmin orders and keep order to give next at 0800 per pharmacist
[2019-07-25] MEDS: ipratropium/albuterol 3ml nebule NEB SCH ×5 (03:14→23:10)
[2019-07-25 04:36] LABS: ABG BASE EXCESS -3.2 mmol/L (-2.0-3.0); ABG HCO3 21.5 mmol/L (22.0-26.0); ABG OXYGEN SATURATION 97.6 % (95-98); ABG PCO2 (T) 37.1 mmHg (35.0-45.0); FCOHb 0.3 % (0.5-1.5); FMetHb 0.1 % (0.3-1.12); FO2Hb 97.2 % (94-100); MINUTE VOLUME 14 L/min; PATIENT TEMPERATURE 36.9; PEEP 10 cm H2O; RESPIRATORY RATE 18 b/min; RESPIRATORY RATE (OBSERVED) 19 b/min; TIDAL VOLUME 700 mL; TOTAL HEMOGLOBIN 10.3 G/dl (14.0-17.9)
--- NOTE | 2019-07-25 06:23 | NUR ---
Problems reprioritized. Patient report given, questions answered & plan of care reviewed with RONNY JOSEPH.
[2019-07-25] MEDS ORDERED: ceFAZolin 1GM/D5W- ADD-VANTAGE 50 ML IV SCH (08:00)
[2019-07-25] MEDS ORDERED: gabapentin 300mg capsule PO SCH (08:00)
[2019-07-25] MEDS: gabapentin 300mg capsule PO SCH ×3 (11:01→20:49)
[2019-07-25] MEDS: lactobacillus rhamnosus 10,000 MMU CELLS/CAPSULE PO SCH ×2 (11:02→20:08)
[2019-07-25] MEDS: clonazePAM 0.5mg tablet PO SCH (11:02)
[2019-07-25] MEDS: duloxetine 30mg CAPSULE.DR PO SCH (11:02)
[2019-07-25] MEDS: lisinopril 20mg tablet PO SCH (11:02)
[2019-07-25] MEDS: nicotine 21mg patch - 24 hr TD SCH (11:06)
[2019-07-25] MEDS: cetirizine 10mg tablet PO SCH (11:07)
[2019-07-25] MEDS: ziprasidone 20mg capsule PO SCH (11:07)
[2019-07-25] MEDS: levoFLOXACIN-Levaquin 750MG/D5 150 ML IV SCH (11:07)
[2019-07-25] MEDS: benztropine 1mg tablet PO SCH (11:07)
[2019-07-25] MEDS: K and/or MAG REPLACEMENT MC SCH (11:41)
[2019-07-25] MEDS ORDERED: cefazolin/dext.iso 2gm/100ml 100 ML IV ONE (12:30)
[2019-07-25] MEDS ORDERED: ceFAZolin 1GM/D5W- ADD-VANTAGE 50 ML IV ONE (12:30)
[2019-07-25] MEDS ORDERED: fentaNYL/PF 50MCG/1 ML 2ML syringe IV PRN (13:20)
[2019-07-25] MEDS ORDERED: insulin regular, human vial - multi-dose SQ SCH (13:20)
[2019-07-25] MEDS: normal saline 1000ml 1,000 ML IV SCH (13:36)
--- NOTE | 2019-07-25 13:58 | NUR ---
F/u: TC from RN pt to extubated tomorrow and no nutrition at this time per surgeon. TF Consult: Pt admit w/ L hemothorax and trapped lung. S/p ORfor L thoracotomy, evacuation L hemothorax, decortication upper and lower lobes, rib resection, bronchoscopy, and CT placement per MD note. Pt intubated post-op w/ hx morbid obesity and noted to have multiple rib fx on admit. Pt has extensive protein needs given current wt, post-op, and intubation. TF recs below. Additional water flushes per team assembly line machine operator w/ Na 136 and low on admit. Will monitor for TF tolerance. Rec: 1. OGTF per MD using Vital High Protein at 115ml/hr goal; to provide 2760ml fluid, 2760kcals, 2318ml free water, and 242g protein. Initiate at 20ml/hr and advance 20ml Q8 to goal as tolerated. 2. additional water flush per team assembly line machine operator; Na 136 today 3. monitor for signs of refeeding syndrome 4. PALB Q /; daily wts Addendum: 07/25/19 at [address] Amended: Links added.
[2019-07-25] MEDS: acetylcysteine 200 MG/ml 4ml vial INH SCH ×3 (15:00→23:10)
--- NOTE | 2019-07-25 16:26 | NUR ---
Notified Dr Ontiveros of increasing temp of 38.5 and HR 110's. orders for 1L NS bolus
[2019-07-25] MEDS ORDERED: normal saline 1000ml 1,000 ML IV ONE (16:30)
[2019-07-25] MEDS: piperacillin/tazo 3.375gm/50ml 50 ML IV SCH (17:37)
[2019-07-25] MEDS ORDERED: CEFAZOLIN IV ONE (17:50)
[2019-07-25] MEDS ORDERED: NORMAL SALINE IV ONE (17:50)
--- NOTE | 2019-07-25 18:30 | NUR ---
Patient in room CICU 2009. I have received report from Antwon JOSEPH and had the opportunity to ask questions and assume patient care.
[2019-07-25] MEDS: atorvastatin 20mg tablet PO SCH (20:49)
[2019-07-25] MEDS: insulin glargine (Lantus) pen - multi-dose SQ SCH (20:50)
[2019-07-25] MEDS: prazosin 1mg capsule PO SCH (20:50)
--- NOTE | 2019-07-25 22:50 | NUR ---
Patient awake and alert, uses call light, writes notes to communicate. Febrile, Fan on, temp reduced on ventilator,Tylenol given earlier for temp. Will continue to monitor.
[2019-07-26] VITALS (24 sets, daily range): BP systolic 103–143; BP diastolic 58–83
[2019-07-26] MEDS: piperacillin/tazo 3.375gm/50ml 50 ML IV SCH ×3 (00:02→16:38)
[2019-07-26] MEDS: acetylcysteine 200 MG/ml 4ml vial INH SCH ×3 (02:40→10:44)
[2019-07-26] MEDS: ipratropium/albuterol 3ml nebule NEB SCH ×5 (02:40→20:14)
[2019-07-26 03:01] LABS: ABG BASE EXCESS -2.9 mmol/L (-2.0-3.0); ABG HCO3 19.8 mmol/L (22.0-26.0); ABG OXYGEN SATURATION 96.4 % (95-98); ABG PCO2 (T) 28.6 mmHg (35.0-45.0); ABG PH (T) 7.461 (7.350-7.450); ABG PO2 (T) 91.6 mmHg (83-108); FCOHb 0.3 % (0.5-1.5); FO2Hb 96.1 % (94-100); MINUTE VOLUME 18 L/min; PATIENT TEMPERATURE 37.7; PEEP 10 cm H2O; RESPIRATORY RATE 18 b/min; RESPIRATORY RATE (OBSERVED) 30 b/min; TIDAL VOLUME 700 mL; TOTAL HEMOGLOBIN 10.3 G/dl (14.0-17.9)
[2019-07-26 03:04] LABS: BASOPHILS % (AUTO) 0.2 % (0-1); EOSINOPHILS # (AUTO) 0.1 X10'3 (0-0.9); EOSINOPHILS % (AUTO) 0.6 % (0-6); HEMATOCRIT 25.8 % (42.0-52.0); HEMOGLOBIN 8.7 g/dl (14.0-17.9); LYMPHOCYTES # (AUTO) 1.4 X10'3 (1.1-4.8); LYMPHOCYTES % (AUTO) 12.1 % (21-51); MEAN CORPUSCULAR HEMOGLOBIN 32.3 PG (27.0-31.0); MEAN CORPUSCULAR HGB CONC 33.8 g/dL (33.0-36.5); MEAN CORPUSCULAR VOLUME 95.5 FL (78-98); MEAN PLATELET VOLUME 6.1 FL (7.4-10.4); MONOCYTES # (AUTO) 1.2 X10'3 (0-0.9); MONOCYTES % (AUTO) 10.9 % (2-12); NEUTROPHILS # (AUTO) 8.8 X10'3 (1.8-7.7); NEUTROPHILS % (AUTO) 76.2 % (42-75); PLATELET COUNT 409 X10'3 (140-440); RED CELL DISTRIBUTION WIDTH 14.5 % (11.5-14.5); WHITE BLOOD COUNT 11.5 X10'3 (4.5-11.0)
[2019-07-26 03:23] LABS: ALANINE AMINOTRANSFERASE 31 U/L (12-78); ALBUMIN/GLOBULIN RATIO 0.6 (1.1-1.5); ALKALINE PHOSPHATASE 86 IU/L (46-116); ANION GAP 6 (8-16); ASPARTATE AMINO TRANSFERASE 32 U/L (10-37); BILIRUBIN,TOTAL 1.6 MG/DL (0.1-1.0); BLOOD UREA NITROGEN 16 MG/DL (7-18); BUN/CREATININE RATIO 16.2 (5.4-32.0); CHLORIDE 108 MMOL/L (99-107); CREATININE 0.99 MG/DL (0.60-1.10); GLUCOSE 156 MG/DL (70-104); MAGNESIUM 2.2 MG/DL (1.5-2.4); PHOSPHORUS 3.1 MG/DL (2.3-4.5); SODIUM 140 MMOL/L (135-145); TOTAL CARBON DIOXIDE 25.8 MMOL/L (24-32); TOTAL PROTEIN 5.5 G/DL (6.4-8.2); eGFR 84 ML/MIN
[2019-07-26] MEDS: FENTANYL-0.9 % NACL/PF 100 ML IV PRN (05:24)
--- NOTE | 2019-07-26 05:42 | NUR ---
Arterial line waveform completely dampened. D/c'd, catheter intact,pressure dressing applied after hemostasis achieved. Pt awake, alert, watching TV. Pain controlled via fentanyl drip.
--- NOTE | 2019-07-26 06:00 | NUR ---
Patient in room CICU 2009. I have received report from Trina JOSEPH and had the opportunity to ask questions and assume patient care.
--- NOTE | 2019-07-26 06:20 | NUR ---
Problems reprioritized. Patient report given, questions answered & plan of care reviewed with Antwon JOSEPH.
[2019-07-26] MEDS: K and/or MAG REPLACEMENT MC SCH (08:00)
[2019-07-26] MEDS: benztropine 1mg tablet PO SCH (08:23)
[2019-07-26] MEDS: duloxetine 30mg CAPSULE.DR PO SCH (08:23)
[2019-07-26] MEDS: ziprasidone 20mg capsule PO SCH (08:24)
[2019-07-26] MEDS: lisinopril 20mg tablet PO SCH (08:25)
[2019-07-26] MEDS: clonazePAM 0.5mg tablet PO SCH (08:25)
[2019-07-26] MEDS: cetirizine 10mg tablet PO SCH (08:25)
[2019-07-26] MEDS: levoFLOXACIN-Levaquin 750MG/D5 150 ML IV SCH (08:26)
[2019-07-26] MEDS: gabapentin 300mg capsule PO SCH ×3 (08:26→20:32)
[2019-07-26] MEDS: lactobacillus rhamnosus 10,000 MMU CELLS/CAPSULE PO SCH ×2 (08:26→20:32)
[2019-07-26] MEDS: nicotine 21mg patch - 24 hr TD SCH (08:27)
--- NOTE | 2019-07-26 11:00 | NUR ---
notified Dr. Ontiveros pt has no DVT prophylaxis/stress ulcer prophylaxis ordered and pt is Sinu tach. No new orders received
[2019-07-26] MEDS ORDERED: naloxone 0.4 mg/ml inj IV PRN (11:30)
[2019-07-26] MEDS ORDERED: ipratropium/albuterol 3ml nebule NEB PRN (11:30)
[2019-07-26] MEDS ORDERED: CADD PCA waste documentation MC PRN (11:30)
[2019-07-26] MEDS ORDERED: racepinephrine 11.25mg/0.5ml nebule NEB PRN (11:30)
[2019-07-26] MEDS: HYDROmorphone/NS 1 mg/ml CADD 50 ML IV SCH ×7 (12:59→23:00)
[2019-07-26] MEDS: methylnaltrexone br 12mg/0.6ml inj***SubQ only SQ SCH (14:04)
[2019-07-26] MEDS: propofol 1000mg/100ml bottle 100 ML IV SCH (15:22)
--- NOTE | 2019-07-26 15:57 | NUR ---
Removed sorenson per MD order following policy and procedures. no complications
--- NOTE | 2019-07-26 16:52 | NUR ---
Patient transferred to [facility] on tele with all belongings. Patient assisted to bed and given call light; on 1L NC. Primary RN notified that patient arrived and settled in bed and that he was hypertensive prior to transfer. BLL, SRx2, CL in reach Addendum: 07/26/19 at 1655 by Antwon Hill RN WRONG PATIENT
--- NOTE | 2019-07-26 18:14 | NUR ---
Problems reprioritized. Patient report given, questions answered & plan of care reviewed with Mac RN.
[2019-07-26] MEDS: prazosin 1mg capsule PO SCH (20:32)
[2019-07-26] MEDS: docusate sod 100mg capsule PO SCH (20:32)
[2019-07-26] MEDS: sennosides/docusate sodium tablet PO SCH (20:32)
[2019-07-26] MEDS: atorvastatin 20mg tablet PO SCH (20:32)
[2019-07-26] MEDS: insulin glargine (Lantus) pen - multi-dose SQ SCH (20:33)
[2019-07-27] VITALS (20 sets, daily range): BP systolic 102–158; BP diastolic 56–94
--- NOTE | 2019-07-27 | NUR ---
RN Note -Pt Activity Pt up for walk. Two person assist, 300 feet, tolerated well. Bath and linen while up.
[2019-07-27] MEDS: HYDROmorphone/NS 1 mg/ml CADD 50 ML IV SCH ×6 (00:29→11:00)
[2019-07-27] MEDS: piperacillin/tazo 3.375gm/50ml 50 ML IV SCH ×3 (00:40→16:33)
[2019-07-27] MEDS: ipratropium/albuterol 3ml nebule NEB SCH ×4 (02:38→20:12)
[2019-07-27 04:09] LABS: BASOPHILS % (AUTO) 0.5 % (0-1); EOSINOPHILS # (AUTO) 0.4 X10'3 (0-0.9); EOSINOPHILS % (AUTO) 4.1 % (0-6); HEMATOCRIT 30.4 % (42.0-52.0); HEMOGLOBIN 10.4 g/dl (14.0-17.9); LYMPHOCYTES # (AUTO) 1.6 X10'3 (1.1-4.8); LYMPHOCYTES % (AUTO) 17.7 % (21-51); MEAN CORPUSCULAR HEMOGLOBIN 32.7 PG (27.0-31.0); MEAN CORPUSCULAR HGB CONC 34.3 g/dL (33.0-36.5); MEAN CORPUSCULAR VOLUME 95.4 FL (78-98); MEAN PLATELET VOLUME 5.9 FL (7.4-10.4); MONOCYTES # (AUTO) 0.8 X10'3 (0-0.9); NEUTROPHILS # (AUTO) 6.1 X10'3 (1.8-7.7); NEUTROPHILS % (AUTO) 68.7 % (42-75); PLATELET COUNT 324 X10'3 (140-440); RED BLOOD COUNT 3.19 X10'6 (4.70-6.10); RED CELL DISTRIBUTION WIDTH 14.3 % (11.5-14.5); WHITE BLOOD COUNT 8.9 X10'3 (4.5-11.0)
[2019-07-27 04:18] LABS: ALANINE AMINOTRANSFERASE 43 U/L (12-78); ALBUMIN 1.9 G/DL (3.4-5.0); ALBUMIN/GLOBULIN RATIO 0.5 (1.1-1.5); ALKALINE PHOSPHATASE 120 IU/L (46-116); ANION GAP 9 (8-16); ASPARTATE AMINO TRANSFERASE 32 U/L (10-37); BILIRUBIN,TOTAL 1.4 MG/DL (0.1-1.0); BLOOD UREA NITROGEN 21 MG/DL (7-18); BUN/CREATININE RATIO 20.6 (5.4-32.0); CALCIUM 8.3 MG/DL (8.5-10.1); CHLORIDE 102 MMOL/L (99-107); CREATININE 1.02 MG/DL (0.60-1.10); GLUCOSE 140 MG/DL (70-104); MAGNESIUM 2.2 MG/DL (1.5-2.4); PHOSPHORUS 3.5 MG/DL (2.3-4.5); SODIUM 136 MMOL/L (135-145); TOTAL CARBON DIOXIDE 25.5 MMOL/L (24-32); TOTAL PROTEIN 5.5 G/DL (6.4-8.2); eGFR 81 ML/MIN
[2019-07-27] MEDS: nicotine 21mg patch - 24 hr TD SCH (07:57)
[2019-07-27] MEDS: levoFLOXACIN-Levaquin 750MG/D5 150 ML IV SCH (07:57)
[2019-07-27] MEDS: gabapentin 300mg capsule PO SCH ×3 (07:58→20:08)
[2019-07-27] MEDS: benztropine 1mg tablet PO SCH (07:58)
[2019-07-27] MEDS: docusate sod 100mg capsule PO SCH ×2 (07:58→20:08)
[2019-07-27] MEDS: ziprasidone 20mg capsule PO SCH (07:59)
[2019-07-27] MEDS: sennosides/docusate sodium tablet PO SCH ×2 (07:59→20:08)
[2019-07-27] MEDS: clonazePAM 0.5mg tablet PO SCH (07:59)
[2019-07-27] MEDS: lisinopril 20mg tablet PO SCH (07:59)
[2019-07-27] MEDS: cetirizine 10mg tablet PO SCH (07:59)
[2019-07-27] MEDS: duloxetine 30mg CAPSULE.DR PO SCH (08:00)
[2019-07-27] MEDS: lactobacillus rhamnosus 10,000 MMU CELLS/CAPSULE PO SCH ×2 (08:00→20:08)
[2019-07-27] MEDS: K and/or MAG REPLACEMENT MC SCH (08:00)
[2019-07-27] MEDS ORDERED: oxyCODONE/APAP 5-325mg tablet PO PRN (12:05)
[2019-07-27] MEDS: oxyCODONE/APAP 5-325mg tablet PO PRN ×3 (13:12→23:08)
--- NOTE | 2019-07-27 16:04 | NUR ---
Report called to Serafin in PCU. Pt transfered to PCU on monitor. All known pt property with pt upon transfer
--- NOTE | 2019-07-27 18:17 | NUR ---
Problems reprioritized. Patient report given, questions answered & plan of care reviewed with JAKE Kapoor.
[2019-07-27] MEDS: prazosin 1mg capsule PO SCH (20:08)
[2019-07-27] MEDS: atorvastatin 20mg tablet PO SCH (20:08)
[2019-07-27] MEDS: insulin glargine (Lantus) pen - multi-dose SQ SCH (21:00)
[2019-07-28] MEDS: piperacillin/tazo 3.375gm/50ml 50 ML IV SCH ×4 (00:44→23:20)
[2019-07-28] MEDS: ipratropium/albuterol 3ml nebule NEB SCH ×4 (02:47→20:01)
[2019-07-28 03:00] VITALS: BP 121/68
[2019-07-28] MEDS: oxyCODONE/APAP 5-325mg tablet PO PRN ×4 (03:04→18:27)
[2019-07-28 06:00] VITALS: BP 115/75
--- NOTE | 2019-07-28 06:23 | NUR ---
Patient in room PCU 3021. I have received report from JAKE Kapoor and had the opportunity to ask questions and assume patient care.
[2019-07-28] MEDS: K and/or MAG REPLACEMENT MC SCH (07:08)
[2019-07-28] MEDS: methylnaltrexone br 12mg/0.6ml inj***SubQ only SQ SCH (08:21)
[2019-07-28] MEDS: nicotine 21mg patch - 24 hr TD SCH (08:21)
[2019-07-28] MEDS: sennosides/docusate sodium tablet PO SCH ×2 (08:22→20:14)
[2019-07-28] MEDS: gabapentin 300mg capsule PO SCH ×3 (08:22→20:15)
[2019-07-28] MEDS: docusate sod 100mg capsule PO SCH ×2 (08:22→20:14)
[2019-07-28] MEDS: clonazePAM 0.5mg tablet PO SCH (08:22)
[2019-07-28] MEDS: benztropine 1mg tablet PO SCH (08:22)
[2019-07-28] MEDS: lactobacillus rhamnosus 10,000 MMU CELLS/CAPSULE PO SCH ×2 (08:22→20:14)
[2019-07-28] MEDS: duloxetine 30mg CAPSULE.DR PO SCH (08:23)
[2019-07-28] MEDS: cetirizine 10mg tablet PO SCH (08:23)
[2019-07-28] MEDS: lisinopril 20mg tablet PO SCH (08:23)
[2019-07-28] MEDS: ziprasidone 20mg capsule PO SCH (08:24)
[2019-07-28 11:00] VITALS: BP 116/69
[2019-07-28] MEDS: levoFLOXACIN 750MG TABLET PO SCH (11:04)
--- NOTE | 2019-07-28 13:02 | NUR ---
reassessment: Pt extubated advanced to carb controlled diet PO 100%; double proteins TIDWM added for additional needs given good appetite hx and protein needs s/p extubation. LBM 07/21 receiving routine senna, colace, probiotic, and relistor. Will continue to monitor. Rec: 1. continue carb controlled diet; double proteins TIDWM 2. routine bowel care; opioid antagonist per MD 3. wt per rx Addendum: 07/28/19 at [address] Amended: Links added.
[2019-07-28 15:00] VITALS: BP 136/76
[2019-07-28 18:00] VITALS: BP 136/84
--- NOTE | 2019-07-28 18:03 | NUR ---
Problems reprioritized. Patient report given, questions answered & plan of care reviewed with JAKE Reese.
[2019-07-28] MEDS: atorvastatin 20mg tablet PO SCH (20:14)
[2019-07-28] MEDS: prazosin 1mg capsule PO SCH (20:15)
[2019-07-28] MEDS: insulin glargine (Lantus) pen - multi-dose SQ SCH (21:00)
[2019-07-28 22:00] VITALS: BP 114/72
[2019-07-28] MEDS: HYDROcodone/acetaminophen 10/325mg tab PO PRN (23:19)
--- NOTE | 2019-07-29 01:29 | NUR ---
Patient in room PCU 3021. I have received report from JAKE Moser and had the opportunity to ask questions and assume patient care.
[2019-07-29] MEDS: ipratropium/albuterol 3ml nebule NEB SCH ×4 (03:09→21:55)
[2019-07-29] MEDS: oxyCODONE/APAP 5-325mg tablet PO PRN ×5 (03:32→21:39)
[2019-07-29 06:00] VITALS: BP 111/65
--- NOTE | 2019-07-29 06:21 | NUR ---
Problems reprioritized. Patient report given, questions answered & plan of care reviewed with Concha Marin RN.
--- NOTE | 2019-07-29 06:29 | NUR ---
Patient in room PCU 3021. I have received report from Mary Ann JOSEPH and had the opportunity to ask questions and assume patient care. All patient's needs met at this time.
--- NOTE | 2019-07-29 07:30 | NUR ---
Tried to flush IV with normal saline, cannula was sticking half way out of hand, patient stated it burned, I discontinued IV, cannula was intact, not complications. I looked for another location for a new IV, I didn't see anywhere I felt comfortable, Nahun JOSEPHcharge manager tried to at one attempt that wasn't successful, I paged PICC nurse, she stated she would come up to place a line in.
[2019-07-29] MEDS: piperacillin/tazo 3.375gm/50ml 50 ML IV SCH ×3 (07:32→23:11)
[2019-07-29] MEDS: gabapentin 300mg capsule PO SCH ×3 (07:33→21:00)
[2019-07-29] MEDS: nicotine 21mg patch - 24 hr TD SCH (07:33)
[2019-07-29] MEDS: docusate sod 100mg capsule PO SCH ×2 (07:37→21:00)
[2019-07-29] MEDS: duloxetine 30mg CAPSULE.DR PO SCH (07:37)
[2019-07-29] MEDS: cetirizine 10mg tablet PO SCH (07:37)
[2019-07-29] MEDS: lactobacillus rhamnosus 10,000 MMU CELLS/CAPSULE PO SCH ×2 (07:37→21:00)
[2019-07-29] MEDS: benztropine 1mg tablet PO SCH (07:38)
[2019-07-29] MEDS: sennosides/docusate sodium tablet PO SCH ×2 (07:38→21:00)
[2019-07-29] MEDS: clonazePAM 0.5mg tablet PO SCH (07:38)
[2019-07-29] MEDS: lisinopril 20mg tablet PO SCH (07:40)
[2019-07-29] MEDS: ziprasidone 20mg capsule PO SCH (07:44)
[2019-07-29] MEDS: K and/or MAG REPLACEMENT MC SCH (08:00)
[2019-07-29 11:00] VITALS: BP 112/79
[2019-07-29] MEDS: levoFLOXACIN 750MG TABLET PO SCH (12:29)
[2019-07-29 15:00] VITALS: BP 112/67
[2019-07-29 18:00] VITALS: BP 136/71
--- NOTE | 2019-07-29 18:14 | NUR ---
Problems reprioritized. Patient report given, questions answered & plan of care reviewed with Mary Ann JOSEPH. All patient's needs met at this time.
--- NOTE | 2019-07-29 18:25 | NUR ---
Problems reprioritized. Patient report given, questions answered & plan of care reviewed with Concha Marin RN.
[2019-07-29] MEDS: prazosin 1mg capsule PO SCH (21:00)
[2019-07-29] MEDS: atorvastatin 20mg tablet PO SCH (21:00)
[2019-07-29] MEDS: insulin glargine (Lantus) pen - multi-dose SQ SCH (21:00)
[2019-07-29 22:00] VITALS: BP 132/81
[2019-07-30] MEDS: HYDROcodone/acetaminophen 10/325mg tab PO PRN ×3 (01:20→14:39)
[2019-07-30 02:00] VITALS: BP 117/60
[2019-07-30] MEDS: ipratropium/albuterol 3ml nebule NEB SCH ×4 (03:14→20:37)
[2019-07-30] MEDS: oxyCODONE/APAP 5-325mg tablet PO PRN ×3 (03:53→20:20)
--- NOTE | 2019-07-30 06:15 | NUR ---
Patient in room PCU 3021. I have received report from JAKE Reese and had the opportunity to ask questions and assume patient care.
--- NOTE | 2019-07-30 06:22 | NUR ---
Problems reprioritized. Patient report given, questions answered & plan of care reviewed with Anna JOSEPH and Flavia JOSEPH.
--- NOTE | 2019-07-30 06:35 | NUR ---
Patient in room PCU 3021. I have received report from JAKE Reese and had the opportunity to ask questions and assume patient care.
[2019-07-30 07:00] VITALS: BP 115/72
[2019-07-30] MEDS: piperacillin/tazo 3.375gm/50ml 50 ML IV SCH ×2 (07:26→16:13)
[2019-07-30] MEDS: nicotine 21mg patch - 24 hr TD SCH (07:26)
[2019-07-30] MEDS: lactobacillus rhamnosus 10,000 MMU CELLS/CAPSULE PO SCH ×2 (07:28→20:19)
[2019-07-30] MEDS: gabapentin 300mg capsule PO SCH ×3 (07:28→20:20)
[2019-07-30] MEDS: cetirizine 10mg tablet PO SCH (07:29)
[2019-07-30] MEDS: duloxetine 30mg CAPSULE.DR PO SCH (07:29)
[2019-07-30] MEDS: docusate sod 100mg capsule PO SCH ×2 (07:29→20:19)
[2019-07-30] MEDS: lisinopril 20mg tablet PO SCH (07:29)
[2019-07-30] MEDS: clonazePAM 0.5mg tablet PO SCH (07:29)
[2019-07-30] MEDS: benztropine 1mg tablet PO SCH (07:30)
[2019-07-30] MEDS: methylnaltrexone br 12mg/0.6ml inj***SubQ only SQ SCH (07:31)
[2019-07-30] MEDS: sennosides/docusate sodium tablet PO SCH ×2 (07:47→20:20)
[2019-07-30] MEDS: ziprasidone 20mg capsule PO SCH (07:48)
[2019-07-30] MEDS: K and/or MAG REPLACEMENT MC SCH (08:00)
--- NOTE | 2019-07-30 09:35 | NUR ---
Pt sent down to radiology for xray
[2019-07-30 11:00] VITALS: BP 125/76
[2019-07-30] MEDS: levoFLOXACIN 750MG TABLET PO SCH (11:38)
[2019-07-30 15:00] VITALS: BP 131/76
--- NOTE | 2019-07-30 18:09 | NUR ---
Problems reprioritized. Patient report given, questions answered & plan of care reviewed with JAKE Reese.
--- NOTE | 2019-07-30 18:12 | NUR ---
Problems reprioritized. Patient report given, questions answered & plan of care reviewed with JAKE Reese.
[2019-07-30 19:00] VITALS: BP 132/83
[2019-07-30] MEDS: atorvastatin 20mg tablet PO SCH (20:19)
[2019-07-30] MEDS: prazosin 1mg capsule PO SCH (20:20)
[2019-07-30] MEDS: insulin glargine (Lantus) pen - multi-dose SQ SCH (21:00)
[2019-07-31] MEDS: piperacillin/tazo 3.375gm/50ml 50 ML IV SCH ×2 (00:32→08:44)
[2019-07-31] MEDS: oxyCODONE/APAP 5-325mg tablet PO PRN ×3 (00:32→11:08)
[2019-07-31 03:00] VITALS: BP 124/68
[2019-07-31] MEDS: ipratropium/albuterol 3ml nebule NEB SCH ×2 (03:05→07:26)
[2019-07-31 06:00] VITALS: BP 146/83
--- NOTE | 2019-07-31 06:10 | NUR ---
Problems reprioritized. Patient report given, questions answered & plan of care reviewed with JAKE Cramer.
--- NOTE | 2019-07-31 06:42 | NUR ---
Patient in room PCU 3021. I have received report from JAKE Reese and had the opportunity to ask questions and assume patient care.
[2019-07-31] MEDS: K and/or MAG REPLACEMENT MC SCH (08:00)
[2019-07-31] MEDS: clonazePAM 0.5mg tablet PO SCH (08:39)
[2019-07-31] MEDS: lactobacillus rhamnosus 10,000 MMU CELLS/CAPSULE PO SCH (08:39)
[2019-07-31] MEDS: nicotine 21mg patch - 24 hr TD SCH (08:39)
[2019-07-31] MEDS: benztropine 1mg tablet PO SCH (08:39)
[2019-07-31] MEDS: docusate sod 100mg capsule PO SCH (08:39)
[2019-07-31] MEDS: gabapentin 300mg capsule PO SCH ×2 (08:39→13:51)
[2019-07-31] MEDS: cetirizine 10mg tablet PO SCH (08:39)
[2019-07-31] MEDS: lisinopril 20mg tablet PO SCH (08:40)
[2019-07-31] MEDS: duloxetine 30mg CAPSULE.DR PO SCH (08:40)
[2019-07-31] MEDS: sennosides/docusate sodium tablet PO SCH (08:40)
[2019-07-31] MEDS: ziprasidone 20mg capsule PO SCH (08:45)
[2019-07-31 11:00] VITALS: BP 144/84
[2019-07-31] MEDS: levoFLOXACIN 750MG TABLET PO SCH (11:08)
[2019-07-31] MEDS ORDERED: OXYC-150 PO (15:51)
[2019-07-31] MEDS ORDERED: NICO-687 TOP (15:51)
--- NOTE | 2019-07-31 16:46 | NUR ---
Pt discharged. IV d/c'd, tele removed, all belongings sent with pt, Rx given to pt. Pt will f/u at [facility] with Dr Yan on 08/14. Pt walked down with mother and left in private vehicle.
== END 2019-07-31 16:41 | disposition home or self-care (01) | DRG 163 ==
LOC: ER 05:27 → ED HOLD 10:40 → PCU 3S 11:47 → CICU 2S 07-24 22:11 → PCU 3S 07-27 15:40
PROVIDERS: ADMIT Family Medicine; ATTEND Internal Medicine Critical Care Medicine
PROC: 5A09357 Assistance with Respiratory Ventilation, Less than 24 Consecutive Hours, Continuous Positive Airway Pressure (ICD-10-PCS; 2019-07-22)
PROC: BW241ZZ Computerized Tomography (CT Scan) of Chest and Abdomen using Low Osmolar Contrast (ICD-10-PCS; 2019-07-22)
PROC: 0W9B30Z Drainage of Left Pleural Cavity with Drainage Device, Percutaneous Approach (ICD-10-PCS; 2019-07-22)
PROC: 0BCJ0ZZ Extirpation of Matter from Left Lower Lung Lobe, Open Approach (ICD-10-PCS; 2019-07-24)
PROC: 0BCG0ZZ Extirpation of Matter from Left Upper Lung Lobe, Open Approach (ICD-10-PCS; 2019-07-24)
PROC: 0B5P0ZZ Destruction of Left Pleura, Open Approach (ICD-10-PCS; 2019-07-24)
PROC: 0PB10ZZ Excision of 1 to 2 Ribs, Open Approach (ICD-10-PCS; 2019-07-24)
PROC: 0JC60ZZ Extirpation of Matter from Chest Subcutaneous Tissue and Fascia, Open Approach (ICD-10-PCS; 2019-07-24)
PROC: 0W9B00Z Drainage of Left Pleural Cavity with Drainage Device, Open Approach (ICD-10-PCS; 2019-07-24)
PROC: 5A09357 Assistance with Respiratory Ventilation, Less than 24 Consecutive Hours, Continuous Positive Airway Pressure (ICD-10-PCS; 2019-07-24)
PROC: BW241ZZ Computerized Tomography (CT Scan) of Chest and Abdomen using Low Osmolar Contrast (ICD-10-PCS; 2019-07-24)
PROC: 02H633Z Insertion of Infusion Device into Right Atrium, Percutaneous Approach (ICD-10-PCS; 2019-07-24)
PROC: 0B978ZZ Drainage of Left Main Bronchus, Via Natural or Artificial Opening Endoscopic (ICD-10-PCS; principal; 2019-07-24 21:28)
PROC: 5A09357 Assistance with Respiratory Ventilation, Less than 24 Consecutive Hours, Continuous Positive Airway Pressure (ICD-10-PCS; 2019-07-26)
PROC: 5A09357 Assistance with Respiratory Ventilation, Less than 24 Consecutive Hours, Continuous Positive Airway Pressure (ICD-10-PCS; 2019-07-27)
PROC: 5A09357 Assistance with Respiratory Ventilation, Less than 24 Consecutive Hours, Continuous Positive Airway Pressure (ICD-10-PCS; 2019-07-28)
PROC: 5A09357 Assistance with Respiratory Ventilation, Less than 24 Consecutive Hours, Continuous Positive Airway Pressure (ICD-10-PCS; 2019-07-29)
PROC: 5A09357 Assistance with Respiratory Ventilation, Less than 24 Consecutive Hours, Continuous Positive Airway Pressure (ICD-10-PCS; 2019-07-30)
PROC: 5A09357 Assistance with Respiratory Ventilation, Less than 24 Consecutive Hours, Continuous Positive Airway Pressure (ICD-10-PCS; 2019-07-31)
DX: J94.2 Hemothorax (principal); J18.9 Pneumonia, unspecified organism; J86.9 Pyothorax without fistula; S22.42XA Multiple fractures of ribs, left side, initial encounter for closed fracture; J98.11 Atelectasis; Z68.43 Body mass index [BMI] 50.0-59.9, adult; J90 Pleural effusion, not elsewhere classified; I10 Essential (primary) hypertension; E66.01 Morbid (severe) obesity due to excess calories; E78.5 Hyperlipidemia, unspecified; F12.90 Cannabis use, unspecified, uncomplicated; G89.29 Other chronic pain; F17.210 Nicotine dependence, cigarettes, uncomplicated; M54.9 Dorsalgia, unspecified; J45.909 Unspecified asthma, uncomplicated; X58.XXXA Exposure to other specified factors, initial encounter; F20.9 Schizophrenia, unspecified; F31.9 Bipolar disorder, unspecified; F41.9 Anxiety disorder, unspecified; G47.30 Sleep apnea, unspecified; E11.40 Type 2 diabetes mellitus with diabetic neuropathy, unspecified; Z79.84 Long term (current) use of oral hypoglycemic drugs; Z79.899 Other long term (current) drug therapy; Y93.89 Activity, other specified; Y92.89 Other specified places as the place of occurrence of the external cause; Y99.8 Other external cause status
CPT/HCPCS: 32557; 36415; 36600; 71045; 71046; 71250; 71260; 76937; 80053; 80061; 80305; 81001; 82803; 82945; 82948; 83036; 83605; 83615; 83690; 83735; 83880; 83986; 84100; 84157; 85018; 85025; 85610; 85730; 86885; 86900; 86901; 87015; 87040; 87070; 87075; 87081; 88300; 88305; 89051; 92508; 92616; 93005; 93308; 94002; 94003; 94640; 94667; 94668; 94760; 97110; 97116; 97161; 97162; 97530; 99285; A4215; A4618; A6258; A6449; A7000; A7048; C1758; C9250; G0378; J0690; J1170; J1580; J1815; J1956; J2212; J2250; J2270; J2405; J2543; J2704; J3010; J3490; J7030; J7120; Q9967

== ENCOUNTER 2022-07-09 12:45 | Emergency (ER) | payer MEDICARE, MEDICAID ==
[~2022-07-09] VITALS: Ht 180.3 cm; Wt 165.9 kg
[~2022-07-09 12:45] MED LIST changes: +ATOR20TA66 PO; +BENZ1TAB7 PO; +CETI10TA14 PO; +CLON0.5T4 PO; +DULO60CA65 PO; -FAMO-128 PO; +GABA-532 PO; +LISI20TA28 PO; +METF-900 PO; +OXYC-150 PO; +PRAZ1CAP5 PO; +ZIPR80CA10 PO
[2022-07-09 12:48] VITALS: BP 132/102
[2022-07-09] MEDS ORDERED: ibuprofen tablet 400 MG TABLET PO ONE (13:10)
[2022-07-09] MEDS ORDERED: IBUP-1986 PO (13:14)
[2022-07-09] MEDS ORDERED: AMOX-101 PO (13:14)
== END 2022-07-09 13:37 | disposition home or self-care (01) ==
LOC: ER 12:46
DX: K08.89 Other specified disorders of teeth and supporting structures (principal)
CPT/HCPCS: 99283